=== PATIENT | female | born 1945 | race American Indian/Alaskan Native ===

== ENCOUNTER 2017-03-02 07:18 | Day surgery (SDC) | payer MEDICARE, OTHER ==
[2017-02-25 09:44] LABS: Basophils % (Auto) 0.6 % (0.0-1.8); Hematocrit 37.7 % (30.3-42.9); Mean Corpuscular HGB Conc 32 % (30-34); Mean Corpuscular Hemoglobin 24 pg (28-32); Mean Corpuscular Volume 76 fl (79-97); Platelet Count 289 K/mm3 (140-440); Red Blood Count 4.99 M/mm3 (3.65-5.03); Red Cell Distribution Width 16.4 % (13.2-15.2); White Blood Count 6.7 K/mm3 (4.5-11.0)
[2017-02-25 10:16] LABS: Anion Gap 17 mmol/L; Blood Urea Nitrogen 11 mg/dL (7-17); Carbon Dioxide 27 mmol/L (22-30); Chloride 104.6 mmol/L (98-107); Glucose 100 mg/dL (65-100); Potassium 3.8 mmol/L (3.6-5.0); Sodium 145 mmol/L (137-145)
[2017-03-02] MEDS ORDERED: DIPRIVAN 10 MG/ML IV ONE (07:21)
[2017-03-02] MEDS ORDERED: XYLOCAINE MPF 2% ONE (07:25)
[2017-03-02] MEDS ORDERED: DILAUDID ONE (07:26)
--- NOTE | 2017-03-02 07:38 | Anesthesia Consultation ---
Anesthesia Consult and Med Hx Date of service: 03/02/17 - Airway Anesthetic Teeth Evaluation: Partials (upper) ROM Head & Neck: Adequate Mental/Hyoid Distance: Adequate Mallampati Class: Class II Intubation Access Assessment: Probably Good - Pulmonary Exam CTA: Yes - Cardiac Exam Cardiac Exam: RRR - Pre-Operative Health Status ASA Pre-Surgery Classification: ASA2 Proposed Anesthetic Plan: General (no previous GA problems) - Cardiovascular System Hx Hypertension: Yes (x 20 yrs; high cholesterol) - Central Nervous System Hx Neuromuscular Disorder: Yes (arthritis; anny TKR) Hx Back Pain: Yes Hx Psychiatric Problems: No - Other Systems Hx Cancer: No
--- NOTE | 2017-03-02 07:39 | Anesthesia Day of Surgery ---
Anesthesia Day of Surgery - Day of Surgery Patient Examined: Yes Patient H&P Reviewed: Yes Patient is NPO: Yes
[2017-03-02] MEDS ORDERED: PEPCID IV NR (07:40)
[2017-03-02] MEDS ORDERED: NACL 0.9% 1000 ML 1,000 ML IV SCH (07:40)
[2017-03-02] MEDS ORDERED: VERSED IV PRN (07:40)
[2017-03-02] MEDS ORDERED: PEPCID IV ONE (07:49)
[2017-03-02] MEDS ORDERED: NACL 0.9% 1000 ML 1,000 ML ONE (07:49)
[2017-03-02] MEDS ORDERED: SILVER NITRATE TP ONE ×2 (07:51→08:48)
--- NOTE | 2017-03-02 07:51 | Short Stay Summary ---
Short Stay Documentation Date of service: 03/02/17 Narrative H&P: patient is a 72 year old who presented to the office one month ago with the complaint of sudden onset, but prolonged postmenopausal bleeding. - History Principal diagnosis: post menopausal bleeding Past Medical History: hypertension Past Surgical History: No surgical history Social history: - Allergies and Medications Current Medications: Allergies No Known Allergies Allergy (Unverified 02/24/17 14:08) Home Medications Medication Instructions Recorded Confirmed Last Taken Type Calcium Carbonate/Vitamin D3 1 each PO DAILY 02/24/17 02/24/17 Unknown History [Calcium 600-Vit D3 800 Tablet] Ibuprofen [Motrin] 200 mg PO Q6H PRN 02/24/17 02/24/17 Unknown History Losartan [Cozaar] 50 mg PO QDAY 02/24/17 02/24/17 Unknown History Potassium Chloride 20 meq PO DAILY 02/24/17 02/24/17 Unknown History Simvastatin [Zocor TAB] 20 mg PO QHS 02/24/17 02/24/17 Unknown History amLODIPine [Norvasc] 5 mg PO DAILY 02/24/17 02/24/17 Unknown History Active Medications Famotidine (Pepcid) 20 mg IV PREOP NR Stop: 03/02/17 08:00 Sodium Chloride (Nacl 0.9% 1000 Ml) 1,000 mls @ 100 mls/hr IV DIRECT TATIANA Stop: 03/02/17 23:59 Midazolam HCl (Versed) 1 mg IV PREOP PRN PRN Reason: Anxiety Stop: 03/02/17 08:00 - Physical exam General appearance: no acute distress Integumentary: no rash Lungs: Clear to auscultation, Normal air movement Breasts: deferred Heart: Regular rate, Normal S1, Normal S2 Gastrointestinal: normal, normoactive bowel sounds Female Genitourinary: normal Extremities: no ischemia, No edema - Brief post op/procedure progress note Date of procedure: 03/02/17 Pre-op diagnosis: Post menopausal bleeding Post-op diagnosis: same Procedure: Hysteroscopy and D&C Anesthesia: MAC Findings: Somewhat thickened endometrium Surgeon: MARY UREÑA Estimated blood loss: minimal Pathology: list (endometrial currettings) Specimen disposition: to lab Condition: stable - Hospital course Hospital course: unremarkable - Disposition Condition at discharge: Good Disposition: DISCHARGED TO HOME OR SELFCARE Short Stay Discharge Plan Activity: no restrictions Weight Bearing Status: Weight Bear as Tolerated Diet: regular Additional Instructions: NOTHING PER VAGINA, NO SEX, NO DOUCHE, NO TAMPOONS, NO BATH. MAY SHOWER AND WASH HAIR. Follow up with: MARY UREÑA MD [Staff Physician] - 14 Days Forms: Outpatient Surgery DC Inst. Prescriptions: HYDROcodone/APAP 5-325 [[place] 5/325] 1 each PO Q6HR PRN #20 tablet PRN Reason: Pain Ibuprofen [Motrin] 600 mg PO Q8H PRN #30 tablet PRN Reason: Pain
[2017-03-02] MEDS ORDERED: ePHEDrine SULFATE ONE (08:20)
[2017-03-02] MEDS ORDERED: ZOFRAN ONE (08:33)
[2017-03-02] MEDS ORDERED: DECADRON ONE (08:33)
[2017-03-02] MEDS ORDERED: NACL 0.9% IR ONE (08:39)
[2017-03-02] MEDS ORDERED: ZOFRAN IV PRN (09:02)
[2017-03-02] MEDS ORDERED: DILAUDID IV PRN (09:02)
--- NOTE | 2017-03-02 09:18 | Post Anesthesia Evaluation ---
- Post Anesthesia Evaluation Patient Participated: Yes Airway Patent: Yes Stable Respiratory Function: Yes Nausea/Vomiting: No Temp > 96.8F: Yes Pain Manageable: Yes Adequeate Hydration: Yes Anesthesia Complications: No Block Receding Appropriately: Not Applicable Patient on Ventilator: No
[2017-03-02 10:11] VITALS: BP 127/75
--- NOTE | 2017-03-17 20:22 | Operative Report ---
PREOPERATIVE DIAGNOSIS: Postmenopausal bleeding. POSTOPERATIVE DIAGNOSIS. Postmenopausal bleeding. PROCEDURE: D and C with hysteroscopy. SURGEON: Sheila Levine MD ANESTHESIA: LMA. IV FLUIDS: 600. URINE OUTPUT: 200 mL clear prior to beginning of the procedure. COMPLICATIONS: None. SPECIMENS: Endometrial curettings. DESCRIPTION OF PROCEDURE: The patient was taken to the OR with IV running in place. She was properly identified as herself. She was given adequate anesthesia and now placed in dorsal lithotomy position and prepped and draped in normal sterile fashion. Attention was then turned to the patient's vagina. Her bladder was drained approximately 200 mL of clear yellow urine. A speculum was placed in the patient's vagina. The cervix was visualized and grasped with a tenaculum. ____ sounded to approximately 8 cm in length. The cervix was then gently dilated up to approximately 10 mm in diameter, following which hysteroscope was placed into the uterus. The cavity was visualized. ____ were visualized. There was noted to be some minor thickening of the lining. Following that, the scope was removed. The D and C was then performed with a scraping fashion from retrieval of moderate tissue and what appeared to be possible polyps. At the end of this portion of the procedure, there was excellent hemostasis. The instruments were removed from the patient's vagina. She was awakened and taken to recovery in stable condition. Sponge, lap, needle, and instrument counts were correct x 2. JOB# [id number] ROSMERY/SANDY
== END 2017-03-02 10:25 | disposition home or self-care (01) ==
LOC: OR 07:18
PROVIDERS: ATTEND Obstetrics & Gynecology
DX: N85.01 Benign endometrial hyperplasia (principal); I10 Essential (primary) hypertension; M19.90 Unspecified osteoarthritis, unspecified site; Z96.653 Presence of artificial knee joint, bilateral; Z79.899 Other long term (current) drug therapy
CPT/HCPCS: 36415; 58558; 80048; 85025; 88305; A4217; J1100; J1170; J2250; J2405; J2704; J7030